=== PATIENT | female | born 1995 | race Caucasian/White ===

== ENCOUNTER → 2021-07-11 16:45 | Inpatient (IN) | payer BC, OTHER ==
--- NOTE | 2021-07-09 18:03 | P.HPOB ---
History of Present Illness H&P Date: 07/09/21 Chief Complaint: Requested induction of labor This patient is a pleasant 25 yr female EDC 07/17/2021 estimated gestational age 39 0/7 weeks who presents to labor and delivery for requested induction of labor. has been uncomplicated. She has a history of severe preeclampsia last and has been on 81mg ASA this without evidence of hypertension. care has otherwise been uncomplicated. Review of Systems Genitourinary: Reports Menstruation: Reports amenorrhea Past Medical History History of Any Multi-Drug Resistant Organisms: None Reported Additional Past Surgical History / Comment(s): [place] teeth extraction. Neck surgery Past Anesthesia/Blood Transfusion Reactions: No Reported Reaction Past Psychological History: Anxiety Smoking Status: Never smoker Past Alcohol Use History: None Reported Past Drug Use History: None Reported Medications and Allergies Allergies Allergy/AdvReac Type Severity Reaction Status Date / Time No Known Allergies Allergy Verified 10/21/14 16:24 Exam - OBG Physical Exam Abdomen: bowel sounds normal, no diffuse tenderness, no bruit present, no guarding noted, no hepatomegaly, no splenomegaly, no mass Vulva: both: normal Vagina: normal moisture, no discharge Cervix: no lesion (2cm /soft), no discharge Uterus: enlarged (Fundal height 38 cm) Results Labs: O negative (received Rhogam 04/21/2021), Rubella Non-Immune, [id number]-NQS negative, Glucola 121, GBS negative, Ultrasound on 07/05 shows Vtx 7#9oz, normal. Assessment and Plan Assessment: This is a pleasant 25 yr female estimated gestational age 39 weeks who presents to L&D for elective induction of labor. Plan is Pitocin induction of labor per protocol and anticipate normal vaginal delivery. (1) 39 weeks gestation of Status: Acute Code(s): Z3A.39 - 39 WEEKS GESTATION OF SNOMED Code(s): 95608733 (2) Elective induction of labor planned Status: Acute Code(s): HJP7208 - SNOMED Code(s): 244072617 (3) Rh negative status during Status: Acute Code(s): O26.899 - OTH RELATED CONDITIONS, UNSPECIFIED TRIMESTER; Z67.91 - UNSPECIFIED BLOOD TYPE, RH NEGATIVE SNOMED Code(s): 130107349
[2021-07-10] MEDS: LACTATED RINGERS 1,000 ML IV SCH ×3 (06:42→10:35)
[2021-07-10 06:49] LABS: Basophils % (A) 0 %; Eosinophils % (A) 0 %; HCT 39.5 % (34.0-46.0); HGB 12.6 gm/dL (11.4-16.0); Lymphocytes # (A) 1.8 k/uL (1.0-4.8); Lymphocytes % (A) 15 %; MCHC 31.8 g/dL (31.0-37.0); MCV 97.5 fL (80.0-100.0); Mean Platelet Volume 7.8; Monocytes # (A) 0.5 k/uL (0-1.0); Monocytes % (A) 5 %; Neutrophils % (A) 77 %; Platelet Count 189 k/uL (150-450); RBC 4.05 m/uL (3.80-5.40); RDW 13.9 % (11.5-15.5); WBC 11.7 k/uL (3.8-10.6)
[2021-07-10] MEDS: IBUPROFEN 600 MG TAB PO PRN (16:20)
--- NOTE | 2021-07-10 17:55 | P.PROBDLV ---
Vaginal Delivery Note - . Vaginal Delivery Note: Normal vaginal delivery viable female Apgars are 9 and 9 delivery time is 1339 hrs. Please see dictated H&P for intimate details of this patient's admission. Brief summary this is a pleasant 25-year-old 3 para 1 female 39-0/7 weeks gestation who is admitted to labor and delivery for elective induction of labor. On admission patient is 3 cm dilated has artificial rupture membranes for clear fluid. Labor is induced with Pitocin per protocol. Patient's labor progresses and she does get an epidural for pain control. Patient quickly gets to complete does pushes the head to the perineum. The posterior perineum was then supported and we have controlled delivery of the infant's head over the intact perineum. Mouth and nares are bulb suctioned. There is no evidence of a nuchal cord. With gentle downward traction we then have deliver the anterior and posterior shoulder and rest this infant's body. This is a vigorous viable female infant Apgars are 9 and 9 delivery time was 1339 hrs. After delivery of the the umbilical cords immediately clamped and cut due to history of jaundice with previous baby. The placenta is then spontaneously delivered intact. Estimated blood loss is about 100 mL. There is a first-degree left va ginal laceration somewhat jagged but is reapproximate is best as possible with a 3-0 Vicryl. Excellent reapproximation is noted. All counts are correct 3. There are no complications. Infant and mother are stable delivery room.
[2021-07-10] MEDS: SENNOSIDES-DOCUSATE SODIUM 1 EACH TAB PO SCH ×2 (20:04→20:05)
[2021-07-10] MEDS: ACETAMINOPHEN TAB 325 MG TAB PO PRN (20:04)
[2021-07-11] MEDS: IBUPROFEN 600 MG TAB PO PRN ×2 (03:41→15:23)
[2021-07-11] MEDS: ACETAMINOPHEN TAB 325 MG TAB PO PRN (06:04)
--- NOTE | 2021-07-11 06:24 | P.PNOBGVD ---
Subjective - Subjective Patient reports: Reports appetite normal, Reports voiding normally, Reports pain well controlled, Reports ambulating normally : doing well Objective - Latest Vital Signs Latest vital signs: Vital Signs Temp Pulse Resp BP Pulse Ox 07/11/21 00:23 97.5 F L 81 18 102/66 97 07/10/21 20:38 98.8 F 87 16 117/78 96 07/10/21 15:50 97.3 F L 85 16 104/58 99 07/10/21 15:20 85 16 106/66 07/10/21 14:50 96 16 109/67 07/10/21 14:35 88 16 109/67 07/10/21 14:20 112 H 16 117/69 07/10/21 14:05 105 H 16 120/69 07/10/21 13:50 109 H 16 125/77 Intake and Output 07/10/21 07/10/21 07/11/21 14:59 22:59 06:59 Intake Total 200 3900 Output Total 100 150 Balance 100 3750 Intake: IV 3400 Oral 200 500 Output: Estimated Blood Loss 100 100 Output, Quantitative 50 Blood Loss Other: # Voids 3 1 - Exam Lungs: bilateral: normal Chest: Normal S1, Normal S2 Extremities: Present: normal Abdomen: Present: normal appearance, soft Uterus: Present: normal, firm - Labs Labs: Abnormal Lab Results - Last 24 Hours (Table) 07/10/21 Range/Units 06:21 WBC 11.7 H (3.8-10.6) k/uL Neutrophils # 9.0 H (1.3-7.7) k/uL Assessment and Plan Assessment: day #1. Patient is resting without complaints and wishes to go home. Vital signs are stable she's afebrile. Uterus is firm nontender and she is having normal lochia. My impression this is a normal course. Plan is to continue routine care discharge home later today. (1) 39 weeks gestation of Current Visit: No Status: Acute Code(s): Z3A.39 - 39 WEEKS GESTATION OF SNOMED Code(s): 75255131 (2) Elective induction of labor planned Current Visit: No Status: Acute Code(s): VSP8515 - SNOMED Code(s): 458793122 (3) Rh negative status during Current Visit: No Status: Acute Code(s): O26.899 - OTH RELATED CONDITIONS, UNSPECIFIED TRIMESTER; Z67.91 - UNSPECIFIED BLOOD TYPE, RH NEGATIVE SNOMED Code(s): 590370666
--- NOTE | 2021-07-11 06:31 | P.DS ---
Providers Date of admission: 07/10/21 05:56 Expected date of discharge: 07/11/21 Attending physician: Jens Rivera Primary care physician: Rashida Loya - Discharge Diagnosis(es) (1) 39 weeks gestation of Current Visit: No Status: Acute (2) Elective induction of labor planned Current Visit: No Status: Acute (3) Rh negative status during Current Visit: No Status: Acute Hospital Course: Please see dictated H&P and delivery note on this patient's admission. In brief summary is a pleasant 25-year-old 3 para 1 female 39-0/7 weeks gestation admitted to labor and delivery for elective induction of labor. Patient is admitted she is uncomplicated induction of labor was on have a vaginal delivery viable female infant. Please see dictated delivery note. patient is done well wishes to go home. Patient's felt be stable for discharge home follow up with me in 6 weeks. Procedures: Induction of labor and normal vaginal delivery Patient Condition at Discharge: Good Plan - Discharge Summary New Discharge Prescriptions: New Ibuprofen [Motrin] 600 mg PO Q6HR PRN #30 tab PRN Reason: Mild Pain (Scale 1 To 3) Discharge Medication List Ibuprofen [Motrin] 600 mg PO Q6HR PRN #30 tab 07/11/21 [Rx] Follow up Appointment(s)/Referral(s): Jens Rivera MD [STAFF PHYSICIAN] - 08/29/21 3:30 pm Patient Instructions/Handouts: Vaginal Delivery (DC) Activity/Diet/Wound Care/Special Instructions: No intercourse or anything per vagina for 6 weeks. Please call if any fever, chills, excessive vaginal bleeding, and/or abdominal pain. Discharge Disposition: HOME SELF-CARE
[2021-07-11 07:11] LABS: Basophils % (A) 0 %; Eosinophils # (A) 0.1 k/uL (0-0.7); Eosinophils % (A) 1 %; HGB 10.8 gm/dL (11.4-16.0); Lymphocytes # (A) 2.1 k/uL (1.0-4.8); Lymphocytes % (A) 19 %; MCH 31.1 pg (25.0-35.0); MCHC 31.7 g/dL (31.0-37.0); MCV 98.2 fL (80.0-100.0); Monocytes # (A) 0.6 k/uL (0-1.0); Monocytes % (A) 6 %; Neutrophils # (A) 7.7 k/uL (1.3-7.7); Neutrophils % (A) 73 %; Platelet Count 155 k/uL (150-450); RBC 3.46 m/uL (3.80-5.40); RDW 14.1 % (11.5-15.5); WBC 10.6 k/uL (3.8-10.6)
[2021-07-11 08:23] VITALS: RESP 16
[2021-07-11] MEDS: SENNOSIDES-DOCUSATE SODIUM 1 EACH TAB PO SCH (08:32)
[2021-07-11 12:07] VITALS: BP 100/66; PULSE 81; TEMP 98.3
[~2021-07-11 16:45] MED LIST: BENZOCAINE/MENTHOL SPRAY 1 GM/SPRAY AEROSOL TOPICAL PRN; CARBOPROST TROMETHAMINE 250 MCG/ML 1 ML AMP IM PRN; HYDROCORTISONE 2.5% RECTAL CREAM 30 GM TUBE RECTAL PRN; LANOLIN CREAM 5 GM TUBE TOPICAL PRN; LIDOCAINE 1% (PF) 10 MG/ML (30 ML SDV) SQ PRN; METHYLERGONOVINE 0.2 MG/ML 1 ML AMP IM PRN; OXYTOCIN 10 UNIT/ML 1 ML VIAL IM PRN; OXYTOCIN 30 UNITS/500 ML NS 30 UNIT in SALINE 1 500ML.BAG IV SCH; ROPIVACAINE 100 MG, fentaNYL (PF). 200 MCG in SODIUM CHLORIDE 0.9% 76 ML EPIDURAL ONE; Rhogam IMMUNE GLOBULIN 1,500 UNIT/1 ML IM ONE; SIMETHICONE 80 MG CHEWABLE PO PRN; TERBUTALINE 1 MG/ML VIAL SQ PRN; ZOLPIDEM 5 MG TAB PO PRN; bisacodyL 10 MG SUPP RECTAL PRN; diphenhydrAMINE 25 MG CAP PO PRN; diphenhydrAMINE 50 MG/ML 1 ML VIAL IVP PRN
== END | disposition home or self-care (01) | DRG 807 ==
LOC: 4FBP 07-10 05:56
PROVIDERS: ADMIT Obstetrics & Gynecology; ATTEND Obstetrics & Gynecology
PROC: 10E0XZZ Delivery of Products of Conception, External Approach (ICD-10-PCS; principal; 2021-07-10)
PROC: 0HQ9XZZ Repair Perineum Skin, External Approach (ICD-10-PCS; 2021-07-10)
PROC: 10907ZC Drainage of Amniotic Fluid, Therapeutic from Products of Conception, Via Natural or Artificial Opening (ICD-10-PCS; 2021-07-10)
PROC: 3E033VJ Introduction of Other Hormone into Peripheral Vein, Percutaneous Approach (ICD-10-PCS; 2021-07-10)
PROC: 4A0HXCZ Measurement of Products of Conception, Cardiac Rate, External Approach (ICD-10-PCS; 2021-07-10)
DX: O26.893 Other specified pregnancy related conditions, third trimester (principal); Z37.0 Single live birth; F41.9 Anxiety disorder, unspecified; O70.0 First degree perineal laceration during delivery; Z67.91 Unspecified blood type, Rh negative; O99.344 Other mental disorders complicating childbirth; Z3A.39 39 weeks gestation of pregnancy
CPT/HCPCS: 85025; 85461; 86850; 86900; 86901